=== PATIENT | female | born 1960 | race Caucasian/White ===

== ENCOUNTER 2018-04-12 03:08 | Inpatient (IN) | payer OTHER, MEDICAID ==
[~2018-04-12] VITALS: Ht 167.6 cm; Wt 77.3 kg
[2018-04-12 04:17] LABS: Basophils # (auto) 0 uL; Basophils % (auto) 0.5 % (0.0-2.0); Eosinophils # (auto) 0 uL; Eosinophils % (auto) 0.7 % (0.0-7.0); Hematocrit 38.5 % (36.0-46.0); Hemoglobin 13.1 g/dL (12.2-16.2); Lymphocytes % (auto) 34.4 % (10.0-50.0); Mean Corpuscular Hemoglobin 31.4 pg (28.0-32.0); Mean Corpuscular Hgb Conc. 33.9 g/dL (32.0-36.0); Mean Corpuscular Volume 92.4 fL (80.0-100.0); Monocytes # (auto) 0.6 uL; Monocytes % (auto) 10.5 % (0.0-12.0); Neutrophils # (auto) 3.2 uL; Neutrophils % (auto) 53.9 % (37.0-80.0); Nucleated Red Blood Cells % 0.1 %; Platelet Count (auto) 105 10^3/uL (140-450); Red Blood Cells 4.17 10^6/uL (4.0-5.20); White Blood Cell 5.9 10^3/uL (4.4-10.8)
[2018-04-12 04:32] LABS: INR 1.01 (0.9-1.15); Partial Thromboplastin Time 26.2 sec (23.78-33.04); Prothrombin Time 10.8 sec (9.27-12.13)
[2018-04-12 04:35] LABS: Albumin 2.5 g/dL (3.4-5.0); Anion Gap 10 (5-15); Blood Urea Nitrogen 22 mg/dL (7-18); Calcium 7.9 mg/dL (8.5-10.1); Carbon Dioxide 25 mmol/L (21-32); Chloride 101 mmol/L (98-107); GFR African American 66 mL/min; GFR Non-African American 54 mL/min; Glucose 311 mg/dL (74-106); Magnesium 2.1 mg/dL (1.6-2.6); Potassium 4.2 mmol/L (3.5-5.1); Sodium 136 mmol/L (136-145)
[2018-04-12 04:38] LABS: Alanine Aminotransferase 9 U/L (13-56); Alkaline Phosphatase 89 U/L (45-117); Aspartate Aminotransferase 7 U/L (15-37); Bilirubin, Total 0.4 mg/dL (0.2-1.0); Total Protein 5.9 g/dL (6.4-8.2)
[2018-04-12] MEDS ORDERED: SODIUM CHLORIDE 0.9% 1,000 ML IV ONE ×3 (10:49→12:15)
[2018-04-12 12:59] LABS: Urine Bacteria NONE SEEN /hpf (None Seen); Urine Blood Negative /uL (Negative); Urine Specific Gravity 1.011 (1.001-1.035); Urine WBC 1 /hpf (0 - 5)
[2018-04-12] MEDS ORDERED: DEXTROSE (50%) 50ML SYRG IV PRN (15:00)
[2018-04-12] MEDS ORDERED: MORPHINE SULF INJ 2 MG/ML SYRINGE 1ML IV PRN (15:00)
[2018-04-12] MEDS ORDERED: SODIUM CHLORIDE 0.9% 1,000 ML IV SCH (15:00)
[2018-04-12] MEDS ORDERED: NITROGLYCERIN 0.4 MG SL TAB SL PRN (15:00)
[2018-04-12] MEDS ORDERED: ASPirin 81 mg TAB PO ONE (15:30)
[2018-04-12] MEDS ORDERED: QUET400T12 PO (16:52)
[2018-04-12] MEDS ORDERED: LEVO25TA49 PO (16:52)
[2018-04-12] MEDS ORDERED: DIVA500T59 PO (16:52)
[2018-04-12] MEDS ORDERED: DONE10TA40 PO (16:52)
[2018-04-12] MEDS ORDERED: METF-370 PO (16:52)
[2018-04-12] MEDS ORDERED: PRI50T PO (16:52)
[2018-04-12] MEDS ORDERED: ERGO2000 PO (16:52)
[2018-04-12] MEDS ORDERED: BENZ1TAB2 PO (16:52)
[2018-04-12 17:00] VITALS: BP 146/71
[2018-04-12 17:29] VITALS: BP 146/71
[2018-04-12] MEDS ORDERED: METF-929 PO (17:43)
[2018-04-12] MEDS ORDERED: DONE5TAB31 PO (17:43)
[2018-04-12] MEDS ORDERED: GLIM4TAB42 PO (17:43)
[2018-04-12] MEDS: ACCU-CHEK COMFORT CURVE STRIP VI SCH ×2 (18:06→21:39)
[2018-04-12] MEDS: SODIUM CHLORIDE 0.9% 1,000 ML IV SCH (18:06)
[2018-04-12] MEDS: InsuLIN REG 1unit/0.01ml Soln (100units/ml) SC SCH (18:07)
[2018-04-12 20:00] VITALS: BP 113/67
[2018-04-12 22:00] VITALS: BP 113/67
[2018-04-12] MEDS ORDERED: InsuLIN REG 1unit/0.01ml Soln (100units/ml) SC SCH (22:00)
[2018-04-12] MEDS ORDERED: ATORVASTATIN 20 MG TAB PO SCH (22:00)
[2018-04-13] MEDS: SODIUM CHLORIDE 0.9% 1,000 ML IV SCH (03:47)
[2018-04-13 05:21] VITALS: BP 115/65
[2018-04-13 05:31] LABS: Basophils # (auto) 0 uL; Basophils % (auto) 0.2 % (0.0-2.0); Eosinophils # (auto) 0.1 uL; Eosinophils % (auto) 1.2 % (0.0-7.0); Hematocrit 35.3 % (36.0-46.0); Hemoglobin 12.2 g/dL (12.2-16.2); Lymphocytes # (auto) 2.4 uL; Lymphocytes % (auto) 39.5 % (10.0-50.0); Mean Corpuscular Hemoglobin 31.7 pg (28.0-32.0); Mean Corpuscular Hgb Conc. 34.6 g/dL (32.0-36.0); Mean Corpuscular Volume 91.8 fL (80.0-100.0); Monocytes # (auto) 0.6 uL; Monocytes % (auto) 9.2 % (0.0-12.0); Neutrophils # (auto) 3.1 uL; Neutrophils % (auto) 49.9 % (37.0-80.0); Nucleated Red Blood Cells % 0.2 %; Platelet Count (auto) 111 10^3/uL (140-450); Red Blood Cells 3.84 10^6/uL (4.0-5.20); Red Cell Distribution Width 14.5 % (11.8-14.3); White Blood Cell 6.2 10^3/uL (4.4-10.8)
[2018-04-13 05:55] LABS: BUN/Creatinine Ratio 19.4; Calcium 7.9 mg/dL (8.5-10.1); Potassium 4.2 mmol/L (3.5-5.1)
[2018-04-13] MEDS: ACCU-CHEK COMFORT CURVE STRIP VI SCH (06:27)
[2018-04-13] MEDS: InsuLIN REG 1unit/0.01ml Soln (100units/ml) SC SCH (06:33)
[2018-04-13 09:00] VITALS: BP 107/60
[2018-04-13] MEDS ORDERED: ASPirin 81 mg TAB PO SCH (10:00)
[2018-04-13 11:11] VITALS: BP 107/60
== END 2018-04-13 12:28 | disposition home or self-care (01) | DRG 91 ==
LOC: EDBD 03:08 → ER 03:15 → TELE 03:16 → TELE-WESTW 17:09
PROVIDERS: ATTEND Internal Medicine
DX: G92 Toxic encephalopathy (principal); E43 Unspecified severe protein-calorie malnutrition; F31.9 Bipolar disorder, unspecified; N18.3 Chronic kidney disease, stage 3 (moderate); D86.9 Sarcoidosis, unspecified; F20.9 Schizophrenia, unspecified; E78.5 Hyperlipidemia, unspecified; E11.22 Type 2 diabetes mellitus with diabetic chronic kidney disease; E03.9 Hypothyroidism, unspecified; T43.595A Adverse effect of other antipsychotics and neuroleptics, initial encounter; T43.205A Adverse effect of unspecified antidepressants, initial encounter; I12.9 Hypertensive chronic kidney disease with stage 1 through stage 4 chronic kidney disease, or unspecified chronic kidney disease; F41.9 Anxiety disorder, unspecified; Z83.3 Family history of diabetes mellitus; Z86.73 Personal history of transient ischemic attack (TIA), and cerebral infarction without residual deficits; Z90.710 Acquired absence of both cervix and uterus; Z90.49 Acquired absence of other specified parts of digestive tract; Y92.89 Other specified places as the place of occurrence of the external cause
CPT/HCPCS: 36415; 70450; 71045; 80048; 80053; 80164; 81001; 82962; 83036; 83735; 83880; 84443; 84484; 85025; 85610; 85730; 93005; 94761; 96360; 96361; J1815